=== PATIENT | female | born 2000 | race African-American/Black ===

== ENCOUNTER 2023-01-21 07:40 | Emergency (ER) | payer SELFPAY ==
[~2023-01-21] VITALS: Ht 165.1 cm; Wt 61.2 kg
[2023-01-21 07:53] VITALS: BP 102/70
--- NOTE | 2023-01-21 08:00 | NUR ---
pt wheeled to bed 4 in wheelchair
--- NOTE | 2023-01-21 08:05 | NUR ---
PT PLACED ON MONITOR. IV FLUID AND MEDICATION ADMINISTERED PER MD ORDERS. PT TOLERATED; ALL QUESTIONS ANSWERED. FRIEND AT BEDSIDE
[2023-01-21] MEDS ORDERED: NACL 0.9% 1,000 ML IV ONE (08:15)
[2023-01-21] MEDS ORDERED: ONDANSETRON 4 MG/2 ML VIAL IVP ONE (08:15)
[2023-01-21] MEDS ORDERED: FAMOTIDINE 20 MG/2 ML VIAL IVP ONE (08:20)
[2023-01-21 08:40] LABS: BASOPHILS # (AUTO) 0.1 K/uL (0.00-0.22); BASOPHILS % (AUTO) 0.7 % (0.0-2.0); HEMATOCRIT 35.6 % (36-48); HEMOGLOBIN 12.3 g/dL (12.0-16.0); LYMPHOCYTES # (AUTO) 0.8 K/uL (2.5-16.5); LYMPHOCYTES % (AUTO) 5.8 % (20.5-51.1); MEAN CORPUSCULAR HEMOGLOBIN 34 pg (27-31); MEAN CORPUSCULAR HGB CONC 35 g/dL (33-37); MEAN CORPUSCULAR VOLUME 98.7 fL (80-94); MONOCYTES # (AUTO) 0.3 K/uL (0.8-1.0); MONOCYTES % (AUTO) 2.6 % (1.7-9.3); NEUTROPHILS % (AUTO) 90.9 % (42.2-75.2); PLATELET COUNT (AUTO) 185 K/uL (140-450); RED BLOOD CELL COUNT(AUTO) 3.61 MIL/uL (4.20-5.40); WHITE BLOOD COUNT (AUTO) 13.3 K/uL (4.8-10.8)
[2023-01-21 08:56] LABS: ALBUMIN 4.2 g/dL (3.4-5.0); ANION GAP 17.1 (8-16); CARBON DIOXIDE 22.3 mmol/L (21-32); CREATININE 1.1 mg/dL (0.6-1.3); POTASSIUM 3.4 mmol/L (3.5-5.1)
[2023-01-21] MEDS ORDERED: POTASSIUM CHLORIDE 10 MEQ TABER PO ONE (09:20)
[2023-01-21] MEDS ORDERED: ONDA-188 SL (09:32)
--- NOTE | 2023-01-21 09:35 | NUR ---
IV removed, catheter intact and site benign. Applied folded 4x4 gauze and tape to stop bleeding.
[2023-01-21 09:42] VITALS: BP 112/74
--- NOTE | 2023-01-21 09:42 | NUR ---
Patient discharged with v/s stable. Written and verbal after care instructions given and explained. Patient alert, oriented and verbalized understanding of instructions. WHEEL CHARIED TO car. All questions addressed prior to discharge. ID band removed. Patient advised to follow up with PMD. Rx of ZOFRAN given. Patient educated on indication of medication including possible reaction and side effects. Opportunity to ask questions provided and answered.
== END 2023-01-21 09:42 | disposition home or self-care (01) ==
LOC: MED 07:40
DX: A08.4 Viral intestinal infection, unspecified (principal); Z71.6 Tobacco abuse counseling; F12.90 Cannabis use, unspecified, uncomplicated; Z79.899 Other long term (current) drug therapy
CPT/HCPCS: 36415; 80053; 83690; 84703; 85025; 96361; 96374; 96375; 99284; J2405; J3490; J7030